=== PATIENT | female | born 1950 | race Asian ===

== ENCOUNTER 2021-07-14 10:27 | Day surgery (SDC) | payer MEDICARE, MEDICAID ==
[~2021-07-14] VITALS: Ht 137.2 cm; Wt 61.3 kg
[2021-07-14 10:40] VITALS: BP 166/68
[2021-07-14] MEDS ORDERED: LOSA50TA3 PO (11:07)
[2021-07-14] MEDS ORDERED: OMEP40CA21 PO (11:07)
[2021-07-14] MEDS ORDERED: HYDR25TA5 PO (11:07)
[2021-07-14] MEDS ORDERED: LORA10TA7 PO (11:07)
[2021-07-14] MEDS ORDERED: ATOR10TA70 PO (11:07)
[2021-07-14 11:44] VITALS: BP 104/55
[2021-07-14 11:46] VITALS: BP 104/55
[2021-07-14 11:54] VITALS: BP 110/60
[2021-07-14 12:04] VITALS: BP 120/55
[2021-07-14 12:14] VITALS: BP 137/57
[2021-07-14] MEDS ORDERED: fentaNYL/PF 50MCG/1 ML 2ML syringe ONE (12:38)
[2021-07-14] MEDS ORDERED: MIDAZolam 1 MG/ML 5ML VIAL ONE (12:39)
== END 2021-07-14 12:25 | disposition home or self-care (01) ==
LOC: GI LAB 10:27
PROVIDERS: ATTEND Internal Medicine Gastroenterology
DX: R19.5 Other fecal abnormalities (principal); D12.3 Benign neoplasm of transverse colon; K64.8 Other hemorrhoids
CPT/HCPCS: 45385; 88305; C1773; G0500; J2250; J3010; J7030; Z7512; 99152; A4620

== ENCOUNTER 2022-08-21 19:10 | Emergency (ER) | payer MEDICARE, MEDICAID ==
[~2022-08-21] VITALS: Ht 129.5 cm; Wt 61.4 kg
[~2022-08-21 19:10] MED LIST: ATOR10TA70 PO; HYDR25TA5 PO; LORA10TA7 PO; LOSA50TA3 PO; OMEP40CA21 PO
[2022-08-21 20:11] LABS: EOSINOPHILS # (AUTO) 0.1 X10'3 (0-0.9); HEMATOCRIT 38.3 % (35.0-45.0); HEMOGLOBIN 12.7 g/dl (12.0-16.0); MEAN CORPUSCULAR HGB CONC 33.1 g/dL (33.0-36.5); MEAN CORPUSCULAR VOLUME 87.6 FL (78-98); MONOCYTES # (AUTO) 0.5 X10'3 (0-0.9); RED BLOOD COUNT 4.38 X10'6 (4.20-5.60); WHITE BLOOD COUNT 5.9 X10'3 (4.5-11.0)
[2022-08-21 20:12] LABS: BASOPHILS % (AUTO) 0.5 % (0-1); EOSINOPHILS % (AUTO) 2.5 % (0-6); LYMPHOCYTES # (AUTO) 1.4 X10'3 (1.1-4.8); MEAN PLATELET VOLUME 7.9 FL (7.4-10.4); NEUTROPHILS # (AUTO) 3.8 X10'3 (1.8-7.7); PLATELET COUNT 259 X10'3 (140-440); RED CELL DISTRIBUTION WIDTH 14.7 % (11.5-14.5)
[2022-08-21 20:25] LABS: ALANINE AMINOTRANSFERASE 10 U/L (12-78); ALBUMIN 3.7 G/DL (3.4-5.0); ALKALINE PHOSPHATASE 79 IU/L (46-116); ANION GAP 11 (8-16); ASPARTATE AMINO TRANSFERASE 12 U/L (10-37); BILIRUBIN,TOTAL 0.4 MG/DL (0.1-1.0); BLOOD UREA NITROGEN 13 MG/DL (7-18); BUN/CREATININE RATIO 16.7 (10.0-20.0); CALCIUM 9.2 MG/DL (8.5-10.1); CHLORIDE 103 MMOL/L (99-107); CREATININE 0.78 MG/DL (0.40-0.90); GLUCOSE 99 MG/DL (70-104); LIPASE 84 U/L (73-393); POTASSIUM 3.7 MMOL/L (3.5-5.1); SODIUM 143 MMOL/L (135-145); TOTAL CARBON DIOXIDE 29.5 MMOL/L (24-32); TOTAL PROTEIN 7.4 G/DL (6.4-8.2); eGFR 73 ML/MIN
[2022-08-21 20:53] LABS: CLARITY,URINE CLEAR (Clear); COLOR,URINE YELLOW (Yellow); GLUCOSE, URINE NEGATIVE (Neg); KETONES,URINE NEGATIVE (Neg); LEUKOCYTE ESTERASE ,URINE NEGATIVE (Neg); NITRITES, URINE NEGATIVE (Neg); OCCULT BLOOD,URINE NEGATIVE (Neg); PH,URINE 6.5 (4.8-8.0); PROTEIN,URINE NEGATIVE (Neg); UROBILINOGEN,URINE 0.2 E.U/dL (0.2-1.0)
[2022-08-21 20:54] LABS: UA COLLECTION TYPE CLN CATCH MIDSTREAM
[2022-08-21 21:08] VITALS: BP 184/79
[2022-08-21] MEDS ORDERED: SUCR1TAB34 PO (23:34)
== END 2022-08-21 23:40 | disposition home or self-care (01) ==
LOC: ER 19:11
DX: K29.00 Acute gastritis without bleeding (principal); K59.00 Constipation, unspecified; R10.13 Epigastric pain; I10 Essential (primary) hypertension
CPT/HCPCS: 36415; 74018; 80053; 81003; 83690; 85025; 99284